=== PATIENT | female | born 1970 ===

== ENCOUNTER 2018-01-16 13:18 | Outpatient (CLI) | payer BC ==
--- NOTE | 2018-01-19 08:27 | Mammography Report ---
BILATERAL DIGITAL AUGMENTED SCREENING MAMMOGRAM with CAD: 01/16/18 13:18:00 CLINICAL: Routine screening. COMPARISON:08/06/13 FINDINGS: Screening views with and without implant displacement demonstrate mostly fatty breasts. No mass, architectural distortion or suspicious calcifications. Intact subpectoral implants. IMPRESSION: No mammographic evidence of malignancy. BI-RADS CATEGORY: 2 -- Benign RECOMMENDATION: Routine mammographic screening in one year. ACR BI-RADS MAMMOGRAPHIC CODES: 0 = Needs additional imaging evaluation; 1 = Negative; 2 = Benign; 3 = Probably benign; 4 = Suspicious; 5 = Malignant; 6 = Known biopsy-proven malignancy COMMENT: 1. Dense breast tissue, i.e., adenosis, fibrocystic changes, etc., may obscure an underlying neoplasm. 2. Approximately 10% of cancers are not detected with mammography. 3. A negative mammography report should not delay biopsy if a clinically suspicious mass is present. COMMENT: Patient follow-up letters are generated via our [employer] application.
== END 2018-01-16 13:19 | disposition home or self-care (01) ==
LOC: SPVWC 13:18
PROVIDERS: ATTEND Obstetrics & Gynecology
DX: Z12.31 Encounter for screening mammogram for malignant neoplasm of breast (principal)
CPT/HCPCS: 77067